=== PATIENT | male | born 1950 | race Two or more races ===

== ENCOUNTER → 2016-11-02 | Outpatient (CLI) | payer MEDICARE, OTHER | END | disposition home or self-care (01) | LOC: RADMN 12:43 | PROVIDERS: ATTEND Family Medicine | DX: I67.2 Cerebral atherosclerosis (principal); G31.9 Degenerative disease of nervous system, unspecified; I51.7 Cardiomegaly; R90.82 White matter disease, unspecified; I70.0 Atherosclerosis of aorta | CPT/HCPCS: 70450 ==

== ENCOUNTER 2018-08-02 13:51 | Emergency (ER) | payer MEDICARE, OTHER ==
[~2018-08-02] VITALS: Ht 165.1 cm; Wt 77.3 kg
[2018-08-02 13:56] VITALS: BP 123/72
[2018-08-02] MEDS ORDERED: ASPI81 PO (14:15)
[2018-08-02] MEDS ORDERED: FINA5TAB41 PO (14:15)
[2018-08-02] MEDS ORDERED: ALBU8HFA IH (14:15)
[2018-08-02] MEDS ORDERED: MONT10TA21 PO (14:16)
[2018-08-02] MEDS ORDERED: VARE1TAB22 PO (14:16)
[2018-08-02] MEDS ORDERED: SIMV-260 PO (14:16)
== END 2018-08-02 16:30 | disposition left against medical advice (07) ==
LOC: EMS 13:51
DX: R10.9 Unspecified abdominal pain (principal); J45.909 Unspecified asthma, uncomplicated; I10 Essential (primary) hypertension; E78.00 Pure hypercholesterolemia, unspecified; Z87.891 Personal history of nicotine dependence; Z53.21 Procedure and treatment not carried out due to patient leaving prior to being seen by health care provider

== ENCOUNTER → 2018-12-02 | Outpatient (CLI) | payer MEDICARE, OTHER ==
[~2018-12-02] MED LIST: ALBU8HFA IH; ASPI81 PO; FINA5TAB41 PO; MONT10TA21 PO; SIMV-260 PO; VARE1TAB22 PO
== END | disposition home or self-care (01) ==
LOC: RADPV 13:58
PROVIDERS: ATTEND Family Medicine
DX: M46.06 Spinal enthesopathy, lumbar region (principal); M46.04 Spinal enthesopathy, thoracic region
CPT/HCPCS: 72070; 72100

== ENCOUNTER → 2019-06-02 | Outpatient (CLI) | payer MEDICARE, OTHER | END | disposition home or self-care (01) | LOC: RADPV 09:40 | PROVIDERS: ATTEND Family Medicine | DX: I70.0 Atherosclerosis of aorta (principal); R91.8 Other nonspecific abnormal finding of lung field ==

== ENCOUNTER → 2020-03-17 | Outpatient (CLI) | payer MEDICARE, OTHER ==
[~2020-03-17] MED LIST changes: +ASPI-728 PO; -ASPI81 PO; +FINA-27 PO; -FINA5TAB41 PO; +MONT-35 PO; -MONT10TA21 PO
== END | disposition home or self-care (01) ==
LOC: RADPV 08:37
PROVIDERS: ATTEND Family Medicine
DX: N40.0 Benign prostatic hyperplasia without lower urinary tract symptoms (principal); K80.20 Calculus of gallbladder without cholecystitis without obstruction; R19.8 Other specified symptoms and signs involving the digestive system and abdomen
CPT/HCPCS: 76700; 76856

== ENCOUNTER → 2020-09-22 | Outpatient (CLI) | payer MEDICARE, OTHER ==
[~2020-09-22] MED LIST changes: +ASPI-1450 PO; -ASPI-728 PO
== END | disposition home or self-care (01) ==
LOC: RADPV 11:53
PROVIDERS: ATTEND Podiatrist
DX: M77.32 Calcaneal spur, left foot (principal)
CPT/HCPCS: 73630-TC

== ENCOUNTER → 2020-10-10 | Outpatient (CLI) | payer MEDICARE, OTHER | END | disposition home or self-care (01) | LOC: RADPV 13:46 | PROVIDERS: ATTEND Family Medicine | DX: R05 Cough (principal) | CPT/HCPCS: 71046 ==

== ENCOUNTER → 2021-01-04 | Outpatient (CLI) | payer MEDICARE, OTHER | END | disposition home or self-care (01) | LOC: RADPV 11:40 | PROVIDERS: ATTEND Family Medicine | DX: M17.0 Bilateral primary osteoarthritis of knee (principal); M25.462 Effusion, left knee; M25.461 Effusion, right knee; M25.762 Osteophyte, left knee; M25.761 Osteophyte, right knee | CPT/HCPCS: 73562-TC ==

== ENCOUNTER → 2022-11-07 | Outpatient (CLI) | payer MEDICARE, OTHER ==
[~2022-11-07] MED LIST changes: +ALBU18HF12 IH; -ALBU8HFA IH
== END | disposition home or self-care (01) ==
LOC: RADMN 12:26
PROVIDERS: ATTEND Family Medicine
DX: R06.02 Shortness of breath (principal); M47.814 Spondylosis without myelopathy or radiculopathy, thoracic region; Z87.891 Personal history of nicotine dependence
CPT/HCPCS: 71046